=== PATIENT | female | born 1945 | race Caucasian/White ===

== ENCOUNTER 2016-11-26 09:38 | Day surgery (SDC) | payer MEDICARE, BC ==
[~2016-11-26 09:38] MED LIST: Lactated Ringers 1,000 ML IV SCH; Lidocaine 2% 5 ML SDV ONE; Midazolam 1 MG/ML 2 ML SDV ONE; Propofol 200 MG/20 ML SDV ONE; fentaNYL 100 MCG/2 ML SDV ONE
--- NOTE | 2016-11-26 10:40 | PCM.PREANE ---
Preanesthetic Assessment - Anesthesia/Transfusion/Family Hx Anesthesia History: Prior Anesthesia Without Reaction Family History of Anesthesia Reaction: No Transfusion History: No Prior Transfusion(s) Intubation History: Unknown - Review of Systems General: No Symptoms Pulmonary: No Symptoms Cardiovascular: No Symptoms Gastrointestinal: No Symptoms, Other (h/o colon polyps) Neurological: No Symptoms Other: Reports: None - Physical Assessment NPO Status Date: 11/25/16 O2 Sat by Pulse Oximetry: 95 Respiratory Rate: 16 Vital Signs: Last Vital Signs Temp 36.3 C 11/26/16 09:45 Pulse 58 L 11/26/16 09:45 Resp 16 11/26/16 09:45 BP 183/76 H 11/26/16 09:45 Pulse Ox 95 11/26/16 09:45 Height: 1.63 m Weight: 88.904 kg ASA Class: 3 Mental Status: Alert & Oriented x3 Airway Class: Mallampati = 2 Dentition: Reports: Normal Dentition Thyro-Mental Finger Breadths: 2 Mouth Opening Finger Breadths: 3 ROM/Head Extension: Limited/Partial Lungs: Clear to Auscultation, Normal Respiratory Effort Cardiovascular: Regular Rate, Regular Rhythm - Allergies Allergies/Adverse Reactions: Allergies Allergy/AdvReac Type Severity Reaction Status Date / Time No Known Allergies Allergy Verified 09/05/15 22:57 - Blood Blood Available: No - Anesthesia Plan Pre-Op Medication Ordered: None - Acknowledgements Anesthesia Type Planned: MAC Pt an Appropriate Candidate for the Planned Anesthesia: Yes Alternatives and Risks of Anesthesia Discussed w Pt/Guardian: Yes Pt/Guardian Understands and Agrees with Anesthesia Plan: Yes PreAnesthesia Questionnaire HEENT History: Reports: None Cardiovascular History: Reports: High Cholesterol, Hypertension Respiratory History: Reports: None Gastrointestinal History: Reports: Colon Polyp Genitourinary History: Reports: None [employer] MANAGER History: Reports: Musculoskeletal History: Reports: Arthritis Neurological History: Reports: None Psychiatric History: Reports: None Endocrine/Metabolic History: Reports: Diabetes, Type II, Hypothyroidism, Obesity /BMI 30+ Hematologic History: Reports: None Immunologic History: Reports: None Oncologic (Cancer) History: Reports: None Dermatologic History: Reports: Cellulitis Other Dermatologic History: cellulitis to face - Infectious Disease History Infectious Disease History: Reports: None - Past Surgical History Head Surgeries/Procedures: Reports: None HEENT Surgical History: Reports: None GI Surgical History: Reports: Colonoscopy (x3) Female Surgical History: Reports: D&C, Other (See Below) (colposcopy) Other Female Surgeries/Procedures: hysterosccopy with polyp removal - SUBSTANCE USE Smoking Status *Q: Never Smoker Tobacco Use Within Last Twelve Months: No Recreational Drug Use History: No - HOME MEDS Home Medications: Home Meds Hydrochlorothiazide 1 tab PO BEDTIME 09/05/15 [History] Levothyroxine [Synthroid] 1 tab PO DAILY 09/05/15 [History] Lisinopril 1 tab PO BEDTIME 09/05/15 [History] Metoprolol Succinate [Toprol XL 100mg] 1 tab PO BEDTIME 09/05/15 [History] Simvastatin [Zocor] 1 tab PO BEDTIME 09/05/15 [History] metFORMIN [Glucophage XR] 1,000 tab PO ACDINNER 09/05/15 [History] Aspirin [[place] Aspirin] 81 mg PO DAILY 11/23/16 [History] Magnesium Oxide [Magnesium] 1 tab PO ASDIRECTED 11/23/16 [History] - CURRENT (IN HOUSE) MEDS Current Meds: Current Medications Lactated Ringer's (Ringers, Lactated) 1,000 mls @ 125 mls/hr IV ASDIRECTED TAD Last Admin: 11/26/16 10:00 Dose: 125 mls/hr Discontinued Medications Fentanyl (Sublimaze) Confirm Administered Dose 100 mcg .ROUTE .STK-MED ONE Stop: 11/26/16 09:05 Lidocaine (Xylocaine-Mpf 2%) Confirm Administered Dose 5 ml .ROUTE .STK-MED ONE Stop: 11/26/16 09:05 Midazolam HCl (Versed 1 Mg/Ml) Confirm Administered Dose 2 mg .ROUTE .STK-MED ONE Stop: 11/26/16 09:05 Propofol (Diprivan 20 Ml) Confirm Administered Dose 400 mg .ROUTE .STK-MED ONE Stop: 11/26/16 09:05
--- NOTE | 2016-11-26 11:39 | PCM.OPNOTE ---
- General Post-Op/Procedure Note Date of Surgery/Procedure: 11/26/16 Operative Procedure(s): Colonoscopy with cold sigmoid colon polypectomy Pre Op Diagnosis: Personal history of colon polyps. Family history of colon cancer. Post-Op Diagnosis: Sigmoid colon polyp. Sigmoid diverticulosis. Anesthesia Technique: MAC (ASA III) Primary Surgeon: Alan Puckett Masonry Contractor: Nicole Roper Condition: Good Free Text/Narrative:: Dictation [id number] CPT CODE [id number]
[2016-11-26] MEDS ORDERED: Lactated Ringers 1,000 ML IV SCH (11:45)
[2016-11-26 12:10] VITALS: BP 146/60
--- NOTE | 2016-11-26 19:00 | OR ---
SURGEON: Alan Puckett M.D. DATE OF PROCEDURE: 11/26/2016 OPERATION PERFORMED: Colonoscopy with cold distal sigmoid polypectomy. ANESTHESIA: MAC. ASA CLASSIFICATION: III. PREOPERATIVE DIAGNOSES: 1. Personal history of colon polyps. 2. Family history of colon cancer. POSTOPERATIVE DIAGNOSES: 1. Sigmoid polyp. 2. Sigmoid diverticulosis. DESCRIPTION OF PROCEDURE: The patient was taken to the endoscopy room, positioned on the endoscopy table in the left lateral decubitus position. Time-out was called for appropriate identification of the patient and procedure. Monitored anesthesia care was provided. The colonoscope was inserted into the rectum and advanced with minimal difficulty to the cecum, where the colonoscope was retroflexed to visualize the ascending colon from below. The colonoscope was then straightened and slowly withdrawn. Cecum, ascending colon, hepatic flexure, transverse colon, splenic flexure, and descending colon showed no tumors, polyps, diverticula, or angiodysplastic changes. Moderate diverticular changes were noted in the sigmoid colon. One polyp was encountered in the distal sigmoid colon and removed with the cold biopsy forceps. The colonoscope was then withdrawn to the rectum. Despite multiple attempts, I was not able to retroflex the colonoscope in the rectum. The colonoscope was then straightened, the rectum aspirated, and the colonoscope removed. The patient tolerated the procedure well and was taken to recovery room in stable condition. MICHAEL HU /[id number]
== END 2016-11-26 12:20 | disposition home or self-care (01) ==
LOC: MW.SDS 09:38
PROVIDERS: ATTEND Surgery
DX: Z12.11 Encounter for screening for malignant neoplasm of colon (principal); D12.5 Benign neoplasm of sigmoid colon; K57.30 Diverticulosis of large intestine without perforation or abscess without bleeding; Z86.010 Personal history of colon polyps; Z80.0 Family history of malignant neoplasm of digestive organs; Z79.82 Long term (current) use of aspirin; Z79.84 Long term (current) use of oral hypoglycemic drugs; Z79.899 Other long term (current) drug therapy; Z98.890 Other specified postprocedural states
CPT/HCPCS: 45380; J2250; J3010; J7120; 00810; 88305; J2704

== ENCOUNTER 2017-10-10 07:54 | Day surgery (SDC) | payer MEDICARE, BC ==
[~2017-10-10 07:54] MED LIST changes: +Bupivacaine 0.25% 10 ML SDV ONE; -Lidocaine 2% 5 ML SDV ONE; +Methylene Blue 50 MG/10 ML Ampule ONE; -Midazolam 1 MG/ML 2 ML SDV ONE; +Octyl 2-Cyanoacrylate 1 Tube ONE; -Propofol 200 MG/20 ML SDV ONE; +Sodium Chloride 0.9% 10 ML Syringe FLUSH PRN; +Sodium Chloride 0.9% 2.5 ML Syringe FLUSH PRN; -fentaNYL 100 MCG/2 ML SDV ONE
[2017-10-10] MEDS ORDERED: ceFAZolin 2 GM in Premix Bag 1 BAG IV ONE (08:00)
--- NOTE | 2017-10-10 08:06 | PCM.PREANE ---
Preanesthetic Assessment - Procedure Proposed Procedure: [facility] - Anesthesia/Transfusion/Family Hx Anesthesia History: Prior Anesthesia Without Reaction Family History of Anesthesia Reaction: No Transfusion History: No Prior Transfusion(s) Intubation History: Unknown - Review of Systems General: No Symptoms Pulmonary: No Symptoms Cardiovascular: No Symptoms Gastrointestinal: No Symptoms Neurological: No Symptoms Other: Reports: None - Physical Assessment NPO Status Date: 10/10/17 NPO Status Time: 00:00 (to levothyroxin with sip H2O this AM) Height: 5 ft 4 in Weight: 173 lb ASA Class: 3 Mental Status: Alert & Oriented x3 Airway Class: Mallampati = 2 Dentition: Reports: Normal Dentition Thyro-Mental Finger Breadths: 3 Mouth Opening Finger Breadths: 3 ROM/Head Extension: Full Lungs: Clear to Auscultation, Normal Respiratory Effort Cardiovascular: Regular Rate, Regular Rhythm - Allergies Allergies/Adverse Reactions: Allergies Allergy/AdvReac Type Severity Reaction Status Date / Time No Known Allergies Allergy Verified 10/05/17 10:20 - Blood Blood Available: No Product(s) Available: None - Anesthesia Plan Free Text/Narrative:: Plan for GETA. Pt has a hx of Afib discovered in the last couple of weeks. Pt states she did not have any symptoms associated with it and that they did not have to do anything differently to "convert" her out of it. She states that she was already on medications for high BP and that her doctor stated that would serve to help this problem as well. This morning she is regular is rate and rhythm. Pre-Op Medication Ordered: None - Acknowledgements Anesthesia Type Planned: General Anesthesia Pt an Appropriate Candidate for the Planned Anesthesia: Yes Alternatives and Risks of Anesthesia Discussed w Pt/Guardian: Yes Pt/Guardian Understands and Agrees with Anesthesia Plan: Yes PreAnesthesia Questionnaire HEENT History: Reports: Other (See Below) Other HEENT History: wears glasses Cardiovascular History: Reports: Afib (hx of new onset a few weeks prior - currently by exam appears to be RRR), High Cholesterol, Hypertension Other Cardiovascular History: irregular HR Respiratory History: Reports: None Gastrointestinal History: Reports: Colon Polyp Genitourinary History: Reports: None EMS COORDINATOR History: Reports: Other OB/BYN History: ureterine polyps Musculoskeletal History: Reports: Arthritis Neurological History: Reports: None Psychiatric History: Reports: None Endocrine/Metabolic History: Reports: Diabetes, Type II, Hypothyroidism, Obesity /BMI 30+ Hematologic History: Reports: None Immunologic History: Reports: None Oncologic (Cancer) History: Reports: None Dermatologic History: Reports: Cellulitis Other Dermatologic History: hx cellulitis to face - Infectious Disease History Infectious Disease History: Reports: None - Past Surgical History Head Surgeries/Procedures: Reports: None HEENT Surgical History: Reports: None GI Surgical History: Reports: Colonoscopy Female Surgical History: Reports: D&C, Other (See Below) Other Female Surgeries/Procedures: hysterosccopy with polyp removal, hysteroscopy with D&C - SUBSTANCE USE Smoking Status *Q: Never Smoker Recreational Drug Use History: No - HOME MEDS Home Medications: Home Meds Hydrochlorothiazide 25 mg PO BEDTIME 09/05/15 [History] Levothyroxine [Synthroid] 1 tab PO DAILY 09/05/15 [History] Lisinopril 1 tab PO BEDTIME 09/05/15 [History] Metoprolol Succinate [Toprol XL 100mg] 50 mg PO BEDTIME 09/05/15 [History] Simvastatin [Zocor] 40 mg PO BEDTIME 09/05/15 [History] metFORMIN [Glucophage XR] 1,000 tab PO ACDINNER 09/05/15 [History] Aspirin [[place] Aspirin] 81 mg PO DAILY 11/23/16 [History] Magnesium Oxide [Magnesium] 1 tab PO ASDIRECTED 11/23/16 [History] - CURRENT (IN HOUSE) MEDS Current Meds: Current Medications Cefazolin Sodium/Dextrose 2 gm (/ Premix) 50 mls @ 100 mls/hr IV ONETIME ONE Stop: 10/10/17 08:29 Lactated Ringer's (Ringers, Lactated) 1,000 mls @ 125 mls/hr IV ASDIRECTED TAD Sodium Chloride (Saline Flush) 10 ml FLUSH ASDIRECTED PRN PRN Reason: Keep Vein Open Sodium Chloride (Saline Flush) 2.5 ml FLUSH ASDIRECTED PRN PRN Reason: Keep Vein Open Discontinued Medications Bupivacaine HCl (Sensorcaine-Mpf 0.25%) Confirm Administered Dose 20 ml .ROUTE .STK-MED ONE Stop: 10/10/17 07:31 Methylene Blue (Provayblue) Confirm Administered Dose 50 mg .ROUTE .STK-MED ONE Stop: 10/10/17 07:31 Octyl Cyanoacrylate (Dermabond Advance) Confirm Administered Dose 1 applic .ROUTE .[facility] Stop: 10/10/17 07:31
[2017-10-10] MEDS ORDERED: Lidocaine 2% 5 ML SDV ONE (08:07)
[2017-10-10] MEDS ORDERED: Ondansetron 4 MG/2 ML SDV ONE (08:07)
[2017-10-10] MEDS ORDERED: Rocuronium 10 MG/ML 10 ML Syringe ONE (08:07)
[2017-10-10] MEDS ORDERED: Propofol 200 MG/20 ML SDV ONE (08:08)
[2017-10-10] MEDS ORDERED: Midazolam 1 MG/ML 2 ML SDV ONE (08:08)
[2017-10-10] MEDS ORDERED: fentaNYL 250 MCG/5 ML SDV ONE (08:08)
[2017-10-10] MEDS ORDERED: ceFAZolin 1 GM Vial ONE (08:09)
[2017-10-10] MEDS ORDERED: Fluorescein 5 ML Vial ONE (08:10)
[2017-10-10 08:45] LABS: CHLORIDE,CL 100 mmol/L (98-107); SODIUM,NA 140 mmol/L (136-145)
[2017-10-10] MEDS ORDERED: Furosemide 40 MG/4 ML VIAL ONE (10:19)
[2017-10-10] MEDS ORDERED: Glycopyrrolate 0.2 MG/ML SDV ONE ×2 (10:30→12:16)
[2017-10-10] MEDS ORDERED: fentaNYL 100 MCG/2 ML SDV IVPUSH PRN (11:14)
[2017-10-10] MEDS ORDERED: Neostigmine Methylsulfate 1 MG/ML 5 ML Syringe ONE (12:16)
[2017-10-10] MEDS ORDERED: Morphine 4 MG/ML Syringe IVPUSH PRN (12:36)
[2017-10-10] MEDS ORDERED: Ondansetron 4 MG/2 ML SDV IVPUSH PRN (12:36)
[2017-10-10] MEDS ORDERED: Promethazine 25 MG/ML SDV IM PRN (12:36)
[2017-10-10] MEDS ORDERED: Acetaminophen/oxyCODONE 325-5 MG Tab PO PRN ×2 (12:36)
[2017-10-10] MEDS ORDERED: HYDROmorphone 2 MG/ML SDV IVPUSH ONE (12:44)
--- NOTE | 2017-10-10 12:51 | PCM.OPNOTE ---
- General Post-Op/Procedure Note Date of Surgery/Procedure: 10/10/17 Operative Procedure(s): Laparoscopic assisted vaginal hysterectomy, bilateral salpingoophrectomy with cystoscopy Findings: Normal appearing uterus tubes and ovaries bilaterally. Left ovary was adherent to the left pelvic side wall. Pre Op Diagnosis: Postmenopausal bleeding,. Complex endometrial hyperplasia with atypia. Endometrial polyps Post-Op Diagnosis: Same Anesthesia Technique: General ET Tube Primary Surgeon: Sangeeta Kohler Gas Engine Operator Compressors: Kia Hendrickson Gas Engine Operator Compressors: Anna Guzman Pathology: Uterus, tubes and ovaries Fluid Replacement, Intraop: 2,500 Output, Urine Amount: 430 EBL in mLs: 150 Complications: None Known Condition: Good
--- NOTE | 2017-10-10 13:26 | PCM.POSTAN ---
POST ANESTHESIA ASSESSMENT - MENTAL STATUS Mental Status: Alert, Oriented - VITAL SIGNS SaO2: 94 (w/o O2 - <90%) - RESPIRATORY Respiratory Status: Respiratory Rate WNL, Airway Patent, O2 Saturation Stable - CARDIOVASCULAR CV Status: Pulse Rate WNL, Blood Pressure Stable - GASTROINTESTINAL GI Status: No Symptoms - POST OP HYDRATION Hydration Status: Adequate & Stable - OBSERVATIONS Free Text/Narrative:: To go to floor with O2 as ordered by her surgeon. comfortable with narcotic treatment over last hour.
[2017-10-10] MEDS: Lactated Ringers 1,000 ML IV SCH ×2 (14:14→21:47)
[2017-10-10] MEDS: Ketorolac 15 MG/ML SDV IVPUSH SCH ×2 (14:38→17:52)
--- NOTE | 2017-10-10 18:43 | PCM.SURGPN ---
- General Info Date of Service: 10/10/17 POD#: 0 Functional Status: Reports: Pain Controlled, Tolerating Diet (Clears), Incentive Spirometry - Review of Systems General: Reports: Other (Sleepy). Denies: Fever, Fatigue Pulmonary: Denies: Shortness of Breath, Pleuritic Chest Pain Cardiovascular: Denies: Chest Pain, Palpitations Gastrointestinal: Denies: Abdominal Pain - Patient Data Vitals - Most Recent: Last Vital Signs Temp 36.1 C 10/10/17 15:15 Pulse 52 L 10/10/17 15:15 Resp 17 10/10/17 15:15 BP 132/59 L 10/10/17 15:15 Pulse Ox 95 10/10/17 15:15 Weight - Most Recent: 173 lb I&O - Last 24 Hours: Intake & Output 10/10/17 10/10/17 10/10/17 06:59 14:59 22:59 Intake Total 5400 245 Output Total 890 210 Balance 4510 35 Lab Results Last 24 Hrs: Laboratory Results - last 24 hr 10/10/17 10/10/17 10/10/17 Range/Units 08:12 08:12 08:12 WBC 10.40 (4.0-11.0) K/uL RBC 5.32 (4.30-5.90) M/uL Hgb 15.4 (12.0-16.0) g/dL Hct 44.7 (36.0-46.0) % MCV 84.0 (80.0-98.0) fL MCH 28.9 (27.0-32.0) pg MCHC 34.5 (31.0-37.0) g/dL RDW Std Deviation 40.3 (28.0-62.0) fl RDW Coeff of Lion 13 (11.0-15.0) % Plt Count 291 (150-400) K/uL MPV 10.10 (7.40-12.00) fL Nucleated RBC % 0.0 /100WBC Nucleated RBCs # 0 K/uL INR Sodium 140 (136-145) mmol/L Potassium 3.9 (3.5-5.1) mmol/L Chloride 100 (98-107) mmol/L Carbon Dioxide 28.9 (21.0-32.0) mmol/L BUN 20 H (7.0-18.0) mg/dL Creatinine 0.6 (0.6-1.0) mg/dL Est Cr Clr Drug Dosing 72.11 mL/min Estimated GFR (MDRD) > 60.0 ml/min Glucose 119 H (74-106) mg/dL POC Glucose (60-110) mg/dL Calcium 10.0 (8.5-10.1) mg/dL Blood Type O POSITIVE Antibody Screen NEGATIVE 10/10/17 10/10/17 Range/Units 08:12 15:59 WBC (4.0-11.0) K/uL RBC (4.30-5.90) M/uL Hgb (12.0-16.0) g/dL Hct (36.0-46.0) % MCV (80.0-98.0) fL MCH (27.0-32.0) pg MCHC (31.0-37.0) g/dL RDW Std Deviation (28.0-62.0) fl RDW Coeff of Lion (11.0-15.0) % Plt Count (150-400) K/uL MPV (7.40-12.00) fL Nucleated RBC % /100WBC Nucleated RBCs # K/uL INR 1.04 Sodium (136-145) mmol/L Potassium (3.5-5.1) mmol/L Chloride (98-107) mmol/L Carbon Dioxide (21.0-32.0) mmol/L BUN (7.0-18.0) mg/dL Creatinine (0.6-1.0) mg/dL Est Cr Clr Drug Dosing mL/min Estimated GFR (MDRD) ml/min Glucose (74-106) mg/dL POC Glucose 143 H (60-110) mg/dL Calcium (8.5-10.1) mg/dL Blood Type Antibody Screen Med Orders - Current: Current Medications Fentanyl (Sublimaze) 50 mcg IVPUSH .Q5MIN PRN PRN Reason: Pain Last Admin: 10/10/17 12:41 Dose: 50 mcg Lactated Ringer's (Ringers, Lactated) 1,000 mls @ 125 mls/hr IV ASDIRECTED TAD Last Admin: 10/10/17 14:14 Dose: 125 mls/hr Ketorolac Tromethamine (Toradol) 15 mg IVPUSH Q6H TAD Last Admin: 10/10/17 17:52 Dose: Not Given Morphine Sulfate (Morphine) 4 mg IVPUSH Q2H PRN PRN Reason: Pain (severe 7-10) Ondansetron HCl (Zofran) 4 mg IVPUSH Q6H PRN PRN Reason: Nausea/Vomiting Oxycodone/Acetaminophen (Percocet 325-5 Mg) 1 tab PO Q4H PRN PRN Reason: Pain (moderate 4-6) Oxycodone/Acetaminophen (Percocet 325-5 Mg) 2 tab PO Q4H PRN PRN Reason: Pain (moderate 4-6) Promethazine HCl (Phenergan) 25 mg IM Q6H PRN PRN Reason: Nausea/Vomiting Discontinued Medications Bupivacaine HCl (Sensorcaine-Mpf 0.25%) Confirm Administered Dose 20 ml .ROUTE .STK-MED ONE Stop: 10/10/17 07:31 Cefazolin Sodium (Ancef) Confirm Administered Dose 1 gm .ROUTE .STK-MED ONE Stop: 10/10/17 08:10 Fentanyl (Sublimaze) Confirm Administered Dose 250 mcg .ROUTE .STK-MED ONE Stop: 10/10/17 08:09 Fluorescein Sodium ([place]-Fluor) Confirm Administered Dose 5 ml .ROUTE .STK-MED ONE Stop: 10/10/17 08:11 Furosemide (Lasix) Confirm Administered Dose 40 mg .ROUTE .STK-MED ONE Stop: 10/10/17 10:20 Glycopyrrolate (Robinul) Confirm Administered Dose 0.2 mg .ROUTE .STK-MED ONE Stop: 10/10/17 10:31 Glycopyrrolate (Robinul) Confirm Administered Dose 0.2 mg .ROUTE .STK-MED ONE Stop: 10/10/17 12:17 Hydromorphone HCl (Dilaudid) 1 mg IVPUSH ONETIME ONE Stop: 10/10/17 12:45 Last Admin: 10/10/17 12:55 Dose: 1 mg Cefazolin Sodium/Dextrose 2 gm (/ Premix) 50 mls @ 100 mls/hr IV ONETIME ONE Stop: 10/10/17 08:29 Last Admin: 10/10/17 14:40 Dose: Not Given Lactated Ringer's (Ringers, Lactated) 1,000 mls @ 125 mls/hr IV ASDIRECTED [facility] Last Admin: 10/10/17 08:38 Dose: 125 mls/hr Cefazolin Sodium/Dextrose (Ancef) Confirm Administered Dose 50 mls @ as directed .ROUTE .STK-MED ONE Stop: 10/10/17 08:10 Acetaminophen (Ofirmev) Confirm Administered Dose 100 mls @ as directed IV .STK- MED ONE Stop: 10/10/17 08:11 Lidocaine (Xylocaine-Mpf 2%) Confirm Administered Dose 5 ml .ROUTE .STK-MED ONE Stop: 10/10/17 08:08 Methylene Blue (Provayblue) Confirm Administered Dose 50 mg .ROUTE .STK-MED ONE Stop: 10/10/17 07:31 Midazolam HCl (Versed 1 Mg/Ml) Confirm Administered Dose 2 mg .ROUTE .STK-MED ONE Stop: 10/10/17 08:09 Neostigmine Methylsulfate (Neostigmine) Confirm Administered Dose 5 mg .ROUTE .STK-MED ONE Stop: 10/10/17 12:17 Octyl Cyanoacrylate (Dermabond Advance) Confirm Administered Dose 1 applic .ROUTE .STK-MED ONE Stop: 10/10/17 07:31 Ondansetron HCl (Zofran) Confirm Administered Dose 4 mg .ROUTE .STK-MED ONE Stop: 10/10/17 08:08 Propofol (Diprivan 20 Ml) Confirm Administered Dose 200 mg .ROUTE .STK-MED ONE Stop: 10/10/17 08:09 Rocuronium Cobalt (Zemuron) Confirm Administered Dose 100 mg .ROUTE .ST-MED ONE Stop: 10/10/17 08:08 Sodium Chloride (Saline Flush) 10 ml FLUSH ASDIRECTED PRN PRN Reason: Keep Vein Open Sodium Chloride (Saline Flush) 2.5 ml FLUSH ASDIRECTED PRN PRN Reason: Keep Vein Open - Exam Wound/Incisions: Dressing Dry and Intact General: Alert, Oriented Lungs: Clear to Auscultation, Normal Respiratory Effort Cardiovascular: Regular Rate, Regular Rhythm GI/Abdominal Exam: Normal Bowel Sounds, Soft, Non-Tender, No Distention Extremities: Non-Tender, No Pedal Edema Psy/Mental Status: Alert, Normal Affect, Normal Mood - Problem List & Annotations (1) Postmenopausal bleeding SNOMED Code(s): 64391393 Code(s): N95.0 - POSTMENOPAUSAL BLEEDING Status: Acute Current Visit: No (2) Complex endometrial hyperplasia with atypia SNOMED Code(s): 235349295 Code(s): N85.02 - ENDOMETRIAL INTRAEPITHELIAL NEOPLASIA [EIN] Status: Acute Current Visit: Yes (3) S/P laparoscopic assisted vaginal hysterectomy (LAVH) SNOMED Code(s): 620903055, 22669346, 231789474 Code(s): Z90.710 - ACQUIRED ABSENCE OF BOTH CERVIX AND UTERUS Status: Acute Current Visit: Yes (4) Status post bilateral salpingo-oophorectomy SNOMED Code(s): 238561140, 764764271 Code(s): Z90.722 - ACQUIRED ABSENCE OF OVARIES, BILATERAL Status: Acute Current Visit: Yes - Problem List Review Problem List Initiated/Reviewed/Updated: Yes - My Orders Last 24 Hours: Active Orders 24 hr Category Date Time Status Patient Status [ADT] Routine ADT 10/10/17 12:36 Active Blood Glucose Check, Bedside [RC] ONETIME Care 10/10/17 07:00 Inactive Blood Glucose Check, Bedside [RC] TIDMEALS Care 10/10/17 12:36 Active Communication Order [RC] ASDIRECTED Care 10/10/17 12:45 Active Diabetes Education [RC] Click to Edit Care 10/10/17 12:45 Active May Shower [RC] ASDIRECTED Care 10/10/17 12:36 Active Notify Provider Intake and Out [RC] ASDIRECTED Care 10/10/17 12:36 Active Notify Provider Vital Signs [RC] ASDIRECTED Care 10/10/17 12:36 Active Notify Provider [RC] PRN Care 10/10/17 12:45 Active Oxygen Therapy [RC] ASDIRECTED Care 10/10/17 12:36 Active Procedure Prep Instructions [RC] PER UNIT ROUTINE Care 10/10/17 05:00 Inactive Procedure Site Prep Instruct [RC] PER UNIT ROUTINE Care 10/10/17 05:00 Inactive RT Incentive Spirometry [RC] Q2HWA Care 10/10/17 12:36 Active Up With Assistance [RC] PER UNIT ROUTINE Care 10/10/17 12:36 Active Up ad Laure [RC] PER UNIT ROUTINE Care 10/10/17 12:36 Active Urinary Catheter Removal [RC] Per Unit Routine Care 10/10/17 12:36 Active Verify Patient Consent Obtain [RC] PER UNIT ROUTINE Care 10/10/17 05:00 Inactive Vital Signs [RC] PER UNIT ROUTINE Care 10/10/17 05:00 Inactive Vital Signs [RC] PER UNIT ROUTINE Care 10/10/17 12:36 Active Regular Diet [DIET] Diet 10/10/17 Dinner Active BASIC METABOLIC PANEL,BMP [CHEM] AM Lab 10/11/17 05:11 Ordered CBC WITH AUTO DIFF [HEME] AM Lab 10/11/17 05:11 Ordered Acetaminophen/oxyCODONE [Percocet 325-5 MG] Med 10/10/17 12:36 Active 1 tab PO Q4H PRN Acetaminophen/oxyCODONE [Percocet 325-5 MG] Med 10/10/17 12:36 Active 2 tab PO Q4H PRN Ketorolac [Toradol] Med 10/10/17 12:45 Active 15 mg IVPUSH Q6H Lactated Ringers [Ringers, Lactated] 1,000 ml Med 10/10/17 13:00 Active IV ASDIRECTED Morphine Med 10/10/17 12:36 Active 4 mg IVPUSH Q2H PRN Ondansetron [Zofran] Med 10/10/17 12:36 Active 4 mg IVPUSH Q6H PRN Promethazine [Phenergan] Med 10/10/17 12:36 Active 25 mg IM Q6H PRN fentaNYL [Sublimaze] Med 10/10/17 11:14 Active 50 mcg IVPUSH .Q5MIN PRN Glucose Management IV Reflex [OM.PC] Routine Oth 10/10/17 12:44 Ordered Peripheral IV Discontinue [OM.PC] Routine Oth 10/10/17 12:36 Ordered Sequential Compression Device [OM.PC] Per Unit Routine Oth 10/10/17 12:36 Ordered Resuscitation Status Routine Resus Stat 10/10/17 12:36 Ordered Medication Orders Fentanyl (Sublimaze) 50 mcg IVPUSH .Q5MIN PRN PRN Reason: Pain Last Admin: 10/10/17 12:41 Dose: 50 mcg Lactated Ringer's (Ringers, Lactated) 1,000 mls @ 125 mls/hr IV ASDIRECTED TAD Last Admin: 10/10/17 14:14 Dose: 125 mls/hr Ketorolac Tromethamine (Toradol) 15 mg IVPUSH Q6H TAD Last Admin: 10/10/17 17:52 Dose: Not Given Admin: 10/10/17 14:38 Dose: Morphine Sulfate (Morphine) 4 mg IVPUSH Q2H PRN PRN Reason: Pain (severe 7-10) Ondansetron HCl (Zofran) 4 mg IVPUSH Q6H PRN PRN Reason: Nausea/Vomiting Oxycodone/Acetaminophen (Percocet 325-5 Mg) 1 tab PO Q4H PRN PRN Reason: Pain (moderate 4-6) Oxycodone/Acetaminophen (Percocet 325-5 Mg) 2 tab PO Q4H PRN PRN Reason: Pain (moderate 4-6) Promethazine HCl (Phenergan) 25 mg IM Q6H PRN PRN Reason: Nausea/Vomiting - Assessment Assessment (Free Text/Narrative):: POD#0 s/p LAVH + BSO, Sleepy but doing well for immediate postop period. HR is regular in the 50's Adequate urine output - Plan Plan (Free Text/Narrative):: Continue current care. May give her antihypertensive (Lisinopril and HCTZ) but hold her beta rachna tonight due low HR of 40-50's Needs assistance out of bed, Santiago out in the am
--- NOTE | 2017-10-10 19:36 | PCM48HPAN ---
Post Anesthesia Note - EVALUATION WITHIN 48HRS OF ANESTHETIC Vital Signs in Normal Range: Yes Patient Participated in Evaluation: Yes Respiratory Function Stable: Yes Airway Patent: Yes Cardiovascular Function Stable: Yes Hydration Status Stable: Yes Pain Control Satisfactory: Yes Nausea and Vomiting Control Satisfactory: Yes Mental Status Recovered: Yes Resp Rate: 17
[2017-10-11] MEDS: Ketorolac 15 MG/ML SDV IVPUSH SCH ×2 (00:17→06:25)
--- NOTE | 2017-10-11 00:44 | OR ---
SURGEON: Sangeeta Kohler MD DATE OF PROCEDURE: WOOD STAINER: 1. Kia Hendrickson M.D. 2. Anna Guzman, Medical Student. POSTOPERATIVE DIAGNOSES: 1. Postmenopausal bleeding. 2. Complex endometrial hyperplasia with atypia. 3. Endometrial polyps. POSTOPERATIVE DIAGNOSES: 1. Postmenopausal bleeding. 2. Complex endometrial hyperplasia with atypia. 3. Endometrial polyps. PROCEDURE: Laparoscopic assisted vaginal hysterectomy with bilateral salpingo oophorectomy and cystoscopy. ANESTHESIA: General endotracheal. FLUIDS: 2500 mL crystalloid. ESTIMATED BLOOD LOSS: 150 mL. FINDINGS: Normal-appearing uterus, tubes, and ovaries. Left ovary adherent to left pelvic side wall. Bilaterally ureters orifice showed copious flow of florescent yellow urine on cystoscopy with no evidence of trauma to the bladder mucosa. COMPLICATIONS: None known. DISPOSITION: Stable to the recovery room. BRIEF HISTORY: The patient is a 72-year-old postmenopausal lady, who was evaluated for postmenopausal bleeding. She had a saline-enhanced sonohysterogram which showed multiple endometrial polyps and office Pipelle biopsy revealed complex endometrial hyperplasia with atypia. Treatment options were discussed and she was offered a hysteroscopy with directed biopsies due to possibility of co- existing endometrial cancer, referral to [facility] or a hysterectomy with removal of her tubes and ovaries. The patient declined the Ist two and rather opted to proceed with hysterectomy with bilateral salpingo-oophorectomy here in [place], as she did not want to try travel for surgery, understanding that she might need for surgery or treatment if endometrial cancer is reported on the final pathology. The surgical risks were discussed including, but not limited to infection, injury to bowel, bladder, blood vessels, or other internal organs, and the risk of thromboembolic event. Understanding these risks, she desired to proceed and appropriate consent was obtained. She was medically cleared by her primary healthcare provider. DESCRIPTION OF PROCEDURE: The patient was taken to the operating room where induction of general anesthesia was performed. After adequate level of anesthesia, she was placed in dorsal lithotomy position. The abdomen was prepped with chlorhexidine and the perineum and the vagina was prepped with Betadine. She was draped in the usual sterile fashion for laparoscopic-assisted vaginal hysterectomy. A Santiago catheter had been placed and backfilled with 30mL of dilute methylene blue. SCDs were in place. She received 2 g of Ancef and an appropriate time- out was held. Examination under anesthesia revealed a normal-sized uterus with no palpable adnexal masses. A bivalve speculum was placed into the vagina and the Zumi was then placed into the uterine cavity. The speculum was removed. The boring machine set up operator jig's gloves were changed. Attention was then turned to the abdomen where 0.25% of Marcaine was injected inferior to the umbilicus fold and a 5 mm incision was made with a scalpel. The anterior abdominal wall was then elevated and a Veress needle was introduced. The opening pressure was 5 mmHg. CO2 insufflation was performed and an adequate pneumoperitoneum of 15 mmHg was obtained. The Veress needle was then removed. A 5 mm port and trocar was introduced and a 5 mm laparoscope was placed into the abdominal cavity and there was no evidence of trauma from the port site placement. The uterus was then elevated out of the pelvis and the patient was placed in steep Trendelenburg. The left ovary was found to be adherent to the left pelvic wall. No other pelvic pathology was noted. Two additional ports were then placed under direct visualization in the right and the left lower quadrant after the areas had been infiltrated with 0.25% Marcaine. Each port was 5 mm and these were placed without difficulty. The uterus was further elevated out of the pelvis and the ureters were noted to be deep within the pelvis away from the operative field. Using a 5 mm ligature device, the adherent left ovary was then released from the pelvic side wall. The area was hemostatic. Attention was then turned to the left infundibulopelvic ligament, which cauterized and cut using the ligature device and then proceeding along to the round ligament and the broad ligament. The anterior leaf of the broad ligament was then opened to develop an adequate bladder flap over the lower uterine segment. This was carried onto the right side and the bladder flap was created without difficulty. The uterine artery on the left side was skeletonized, double cauterized, and cut. Similar steps were then performed on the patient's right side. Both sites were found to be hemostatic and the instruments were then removed from the abdomen and it was desufflated. Attention was then turned to the patient's vagina. The clamped catheter was released. A weighted speculum was then placed posteriorly with right angle retractors placed into the vagina, retracting the vaginal wall anteriorly and laterally. The cervix was grasped with Kathleen tenaculum and circumscribed using electrocautery. The vaginal mucosa was then pushed up the vagina posteriorly and anteriorly and the posterior cul-de-sac was entered sharply and a Ede- Auvard speculum was then placed into the posterior cul-de-sac. The anterior cul - de-sac was then entered sharply as a finger was used to palpate the area that had been developed laparoscopically and then right-angle was placed into the anterior cul-de-sac, lifting the bladder cephalad.. The right and the left uterosacral ligaments were then cross clamped using Marshal clamp, cut, and suture ligated using a Marshal ligature of 2-0 Vicryl on either sides. These stitches were retained. Once these pedicles were taken, the uterus was free, was delivered vaginally and passed on to the mix technician off the operating field. The pedicles were then examined. There was a small area bleeding on the left side. This was cross clamped with a tonsil clamp and was suture ligated with 2-0 Vicryl. The pedicles were then re-examined and found to be hemostatic. The retained uterosacral ligaments were then transfixed to the vagina apices ipsilaterally. All the pedicles were re-examined and found to be completely hemostatic. The cuff was then closed with a running locked suture of 0 Polysorb. The catheter was removed from the bladder. Cystoscopy was then performed after intravenous fluorescein with Lasix had been given. There was copious flow of fluorescent yellow urine bilaterally from the ureter orifices. The catheter was replaced. The vagina was again examined for complete hemostasis and this was found to be adequate. Therefore, the boring machine set up operator jig's gloves were changed. Attention was then turned abdominally where the abdomen was reinsufflated. The pelvis was copiously irrigated and inspected. There was an area that was oozing along the bladder flap. This was gently cauterized using the ligature and was hemostatic. The abdomen was reinspected on the 5 mmHg and was found to be completely hemostatic. Therefore, the abdomen was desufflated. All the ports were removed. The skin was closed with subcuticular sutures of 4-0 Monocryl. Final sponge, needle, and instrument counts were reported as correct. There were no known complications and the patient was transferred to the recovery room in good condition. ZACHARY / FRITZ /[id number] MTDD
[2017-10-11 05:48] VITALS: BP 118/41
[2017-10-11 06:18] LABS: CHLORIDE,CL 100 mmol/L (98-107); SODIUM,NA 135 mmol/L (136-145)
[2017-10-11] MEDS: Lactated Ringers 1,000 ML IV SCH (06:26)
--- NOTE | 2017-10-11 07:07 | PCM.PN ---
<Anna Guzman - Last Filed: 10/11/17 07:04> - General Info Date of Service: 10/11/17 Functional Status: Reports: Pain Controlled, Tolerating Diet, Ambulating, Urinating - Review of Systems General: Denies: Fever, Chills HEENT: Denies: Headaches Pulmonary: Denies: Shortness of Breath, Pleuritic Chest Pain, Cough Cardiovascular: Denies: Chest Pain, Palpitations, Edema Gastrointestinal: Denies: Constipation, Diarrhea, Nausea, Vomiting Genitourinary: Denies: Dysuria, Frequency, Burning Musculoskeletal: Denies: Leg Pain Neurological: Denies: Dizziness, Headache - Patient Data Vitals - Most Recent: Last Vital Signs Temp 36.9 C 10/11/17 05:00 Pulse 53 L 10/11/17 05:00 Resp 16 10/11/17 05:00 BP 118/41 L 10/11/17 05:00 Pulse Ox 92 L 10/11/17 05:00 Weight - Most Recent: 173 lb I&O - Last 24 Hours: Intake & Output 10/10/17 10/11/17 10/11/17 22:59 06:59 14:59 Intake Total 245 1758 Output Total 210 451 Balance 35 1307 Lab Results Last 24 Hours: Laboratory Results - last 24 hr 10/10/17 10/10/17 10/10/17 Range/Units 08:12 08:12 08:12 WBC 10.40 (4.0-11.0) K/uL RBC 5.32 (4.30-5.90) M/uL Hgb 15.4 (12.0-16.0) g/dL Hct 44.7 (36.0-46.0) % MCV 84.0 (80.0-98.0) fL MCH 28.9 (27.0-32.0) pg MCHC 34.5 (31.0-37.0) g/dL RDW Std Deviation 40.3 (28.0-62.0) fl RDW Coeff of Lion 13 (11.0-15.0) % Plt Count 291 (150-400) K/uL MPV 10.10 (7.40-12.00) fL Neut % (Auto) (48.0-80.0) % Lymph % (Auto) (16.0-40.0) % [place] % (Auto) (0.0-15.0) % Eos % (Auto) (0.0-7.0) % Baso % (Auto) (0.0-1.5) % Neut # (Auto) (1.4-5.7) K/uL Lymph # (Auto) (0.6-2.4) K/uL [place] # (Auto) (0.0-0.8) K/uL Eos # (Auto) (0.0-0.7) K/uL Baso # (Auto) (0.0-0.1) K/uL Nucleated RBC % 0.0 /100WBC Nucleated RBCs # 0 K/uL INR Sodium 140 (136-145) mmol/L Potassium 3.9 (3.5-5.1) mmol/L Chloride 100 (98-107) mmol/L Carbon Dioxide 28.9 (21.0-32.0) mmol/L BUN 20 H (7.0-18.0) mg/dL Creatinine 0.6 (0.6-1.0) mg/dL Est Cr Clr Drug Dosing 72.11 mL/min Estimated GFR (MDRD) > 60.0 ml/min Glucose 119 H (74-106) mg/dL POC Glucose (60-110) mg/dL Calcium 10.0 (8.5-10.1) mg/dL Blood Type O POSITIVE Antibody Screen NEGATIVE 10/10/17 10/10/17 10/11/17 Range/Units 08:12 15:59 05:40 WBC 11.91 H (4.0-11.0) K/uL RBC 4.16 L (4.30-5.90) M/uL Hgb 11.6 L (12.0-16.0) g/dL Hct 34.7 L (36.0-46.0) % MCV 83.4 (80.0-98.0) fL MCH 27.9 (27.0-32.0) pg MCHC 33.4 (31.0-37.0) g/dL RDW Std Deviation 39.9 (28.0-62.0) fl RDW Coeff of Lion 13 (11.0-15.0) % Plt Count 231 (150-400) K/uL MPV 10.10 (7.40-12.00) fL Neut % (Auto) 78.4 (48.0-80.0) % Lymph % (Auto) 12.2 L (16.0-40.0) % [place] % (Auto) 8.9 (0.0-15.0) % Eos % (Auto) 0.4 (0.0-7.0) % Baso % (Auto) 0.1 (0.0-1.5) % Neut # (Auto) 9.3 H (1.4-5.7) K/uL Lymph # (Auto) 1.5 (0.6-2.4) K/uL [place] # (Auto) 1.1 H (0.0-0.8) K/uL Eos # (Auto) 0.1 (0.0-0.7) K/uL Baso # (Auto) 0.0 (0.0-0.1) K/uL Nucleated RBC % 0.0 /100WBC Nucleated RBCs # 0 K/uL INR 1.04 Sodium (136-145) mmol/L Potassium (3.5-5.1) mmol/L Chloride (98-107) mmol/L Carbon Dioxide (21.0-32.0) mmol/L BUN (7.0-18.0) mg/dL Creatinine (0.6-1.0) mg/dL Est Cr Clr Drug Dosing mL/min Estimated GFR (MDRD) ml/min Glucose (74-106) mg/dL POC Glucose 143 H (60-110) mg/dL Calcium (8.5-10.1) mg/dL Blood Type Antibody Screen 10/11/17 10/11/17 Range/Units 05:40 06:38 WBC (4.0-11.0) K/uL RBC (4.30-5.90) M/uL Hgb (12.0-16.0) g/dL Hct (36.0-46.0) % MCV (80.0-98.0) fL MCH (27.0-32.0) pg MCHC (31.0-37.0) g/dL RDW Std Deviation (28.0-62.0) fl RDW Coeff of Lion (11.0-15.0) % Plt Count (150-400) K/uL MPV (7.40-12.00) fL Neut % (Auto) (48.0-80.0) % Lymph % (Auto) (16.0-40.0) % [place] % (Auto) (0.0-15.0) % Eos % (Auto) (0.0-7.0) % Baso % (Auto) (0.0-1.5) % Neut # (Auto) (1.4-5.7) K/uL Lymph # (Auto) (0.6-2.4) K/uL [place] # (Auto) (0.0-0.8) K/uL Eos # (Auto) (0.0-0.7) K/uL Baso # (Auto) (0.0-0.1) K/uL Nucleated RBC % /100WBC Nucleated RBCs # K/uL INR Sodium 135 L (136-145) mmol/L Potassium 3.8 (3.5-5.1) mmol/L Chloride 100 (98-107) mmol/L Carbon Dioxide 31.4 (21.0-32.0) mmol/L BUN 13 (7.0-18.0) mg/dL Creatinine 0.6 (0.6-1.0) mg/dL Est Cr Clr Drug Dosing 72.11 mL/min Estimated GFR (MDRD) > 60.0 ml/min Glucose 122 H (74-106) mg/dL POC Glucose 92 (60-110) mg/dL Calcium 8.5 (8.5-10.1) mg/dL Blood Type Antibody Screen Med Orders - Current: Current Medications Fentanyl (Sublimaze) 50 mcg IVPUSH .Q5MIN PRN PRN Reason: Pain Last Admin: 10/10/17 12:41 Dose: 50 mcg Lactated Ringer's (Ringers, Lactated) 1,000 mls @ 125 mls/hr IV ASDIRECTED [facility] Last Admin: 10/11/17 06:26 Dose: 125 mls/hr Ketorolac Tromethamine (Toradol) 15 mg IVPUSH Q6H [facility] Last Admin: 10/11/17 06:25 Dose: 15 mg Morphine Sulfate (Morphine) 4 mg IVPUSH Q2H PRN PRN Reason: Pain (severe 7-10) Ondansetron HCl (Zofran) 4 mg IVPUSH Q6H PRN PRN Reason: Nausea/Vomiting Last Admin: 10/11/17 00:18 Dose: 4 mg Oxycodone/Acetaminophen (Percocet 325-5 Mg) 1 tab PO Q4H PRN PRN Reason: Pain (moderate 4-6) Last Admin: 10/10/17 21:43 Dose: 1 tab Oxycodone/Acetaminophen (Percocet 325-5 Mg) 2 tab PO Q4H PRN PRN Reason: Pain (moderate 4-6) Promethazine HCl (Phenergan) 25 mg IM Q6H PRN PRN Reason: Nausea/Vomiting Discontinued Medications Bupivacaine HCl (Sensorcaine-Mpf 0.25%) Confirm Administered Dose 20 ml .ROUTE .STK-MED ONE Stop: 10/10/17 07:31 Cefazolin Sodium (Ancef) Confirm Administered Dose 1 gm .ROUTE .STK-MED ONE Stop: 10/10/17 08:10 Fentanyl (Sublimaze) Confirm Administered Dose 250 mcg .ROUTE .STK-MED ONE Stop: 10/10/17 08:09 Fluorescein Sodium (Ak-Fluor) Confirm Administered Dose 5 ml .ROUTE .STK-MED ONE Stop: 10/10/17 08:11 Furosemide (Lasix) Confirm Administered Dose 40 mg .ROUTE .STK-MED ONE Stop: 10/10/17 10:20 Glycopyrrolate (Robinul) Confirm Administered Dose 0.2 mg .ROUTE .STK-MED ONE Stop: 10/10/17 10:31 Glycopyrrolate (Robinul) Confirm Administered Dose 0.2 mg .ROUTE .STK-MED ONE Stop: 10/10/17 12:17 Hydromorphone HCl (Dilaudid) 1 mg IVPUSH ONETIME ONE Stop: 10/10/17 12:45 Last Admin: 10/10/17 12:55 Dose: 1 mg Cefazolin Sodium/Dextrose 2 gm (/ Premix) 50 mls @ 100 mls/hr IV ONETIME ONE Stop: 10/10/17 08:29 Last Admin: 10/10/17 14:40 Dose: Not Given Lactated Ringer's (Ringers, Lactated) 1,000 mls @ 125 mls/hr IV ASDIRECTED [facility] Last Admin: 10/10/17 08:38 Dose: 125 mls/hr Cefazolin Sodium/Dextrose (Ancef) Confirm Administered Dose 50 mls @ as directed .ROUTE .STK-MED ONE Stop: 10/10/17 08:10 Acetaminophen (Ofirmev) Confirm Administered Dose 100 mls @ as directed IV .STK- MED ONE Stop: 10/10/17 08:11 Lidocaine (Xylocaine-Mpf 2%) Confirm Administered Dose 5 ml .ROUTE .STK-MED ONE Stop: 10/10/17 08:08 Methylene Blue (Provayblue) Confirm Administered Dose 50 mg .ROUTE .STK-MED ONE Stop: 10/10/17 07:31 Midazolam HCl (Versed 1 Mg/Ml) Confirm Administered Dose 2 mg .ROUTE .STK-MED ONE Stop: 10/10/17 08:09 Neostigmine Methylsulfate (Neostigmine) Confirm Administered Dose 5 mg .ROUTE .STK-MED ONE Stop: 10/10/17 12:17 Octyl Cyanoacrylate (Dermabond Advance) Confirm Administered Dose 1 applic .ROUTE .ST-MED ONE Stop: 10/10/17 07:31 Ondansetron HCl (Zofran) Confirm Administered Dose 4 mg .ROUTE .STK-MED ONE Stop: 10/10/17 08:08 Propofol (Diprivan 20 Ml) Confirm Administered Dose 200 mg .ROUTE .STK-MED ONE Stop: 10/10/17 08:09 Rocuronium [place] (Zemuron) Confirm Administered Dose 100 mg .ROUTE .STK-MED ONE Stop: 10/10/17 08:08 Sodium Chloride (Saline Flush) 10 ml FLUSH ASDIRECTED PRN PRN Reason: Keep Vein Open Sodium Chloride (Saline Flush) 2.5 ml FLUSH ASDIRECTED PRN PRN Reason: Keep Vein Open - Exam General: Alert, Oriented, No Acute Distress HEENT: Pupils Equal, Pupils Reactive Lungs: Clear to Auscultation, Normal Respiratory Effort Cardiovascular: Regular Rhythm, No Murmurs, Bradycardia GI/Abdominal Exam: Normal Bowel Sounds, Soft, No Distention. No: Guarding, Rigid, Rebound Extremities: Normal Inspection, Normal Range of Motion, Non-Tender, No Pedal Edema, Normal Capillary Refill Peripheral Pulses: 2+: Posterior Tibial (L), Posterior Tibial (R), Dorsalis Pedis (L), Dorsalis Pedis (R) Skin: Warm, Dry, Intact Wound/Incisions: Healing Well, Dressing Dry and Intact Neurological: No New Focal Deficit Psy/Mental Status: Alert, Normal Affect, Normal Mood - Problem List Review Problem List Initiated/Reviewed/Updated: Yes - Assessment Assessment:: 72 year old female POD1 from laparoscopic assisted vaginal hysterectomy for endometrial hyperplasia. Pain controlled. Recovering appropriately. - Plan Plan:: Discharge today. <Sangeeta Kohler - Last Filed: 10/11/17 08:48> - General Info Functional Status: Reports: Other (No vaginal bleeding). Denies: Urinating ( Santiago was taken out this am- patient is yet to void) - Patient Data Vitals - Most Recent: Last Vital Signs Temp 36.9 C 10/11/17 05:00 Pulse 53 L 10/11/17 05:00 Resp 16 10/11/17 05:00 BP 118/41 L 10/11/17 05:00 Pulse Ox 92 L 10/11/17 05:00 I&O - Last 24 Hours: Intake & Output 10/10/17 10/11/17 10/11/17 22:59 06:59 14:59 Intake Total 245 1758 Output Total 210 451 Balance 35 1307 Lab Results Last 24 Hours: Laboratory Results - last 24 hr 10/10/17 10/10/17 10/10/17 Range/Units 08:12 08:12 15:59 WBC (4.0-11.0) K/uL RBC (4.30-5.90) M/uL Hgb (12.0-16.0) g/dL Hct (36.0-46.0) % MCV (80.0-98.0) fL MCH (27.0-32.0) pg MCHC (31.0-37.0) g/dL RDW Std Deviation (28.0-62.0) fl RDW Coeff of Lion (11.0-15.0) % Plt Count (150-400) K/uL MPV (7.40-12.00) fL Neut % (Auto) (48.0-80.0) % Lymph % (Auto) (16.0-40.0) % [place] % (Auto) (0.0-15.0) % Eos % (Auto) (0.0-7.0) % Baso % (Auto) (0.0-1.5) % Neut # (Auto) (1.4-5.7) K/uL Lymph # (Auto) (0.6-2.4) K/uL [place] # (Auto) (0.0-0.8) K/uL Eos # (Auto) (0.0-0.7) K/uL Baso # (Auto) (0.0-0.1) K/uL Nucleated RBC % /100WBC Nucleated RBCs # K/uL Sodium 140 (136-145) mmol/L Potassium 3.9 (3.5-5.1) mmol/L Chloride 100 (98-107) mmol/L Carbon Dioxide 28.9 (21.0-32.0) mmol/L BUN 20 H (7.0-18.0) mg/dL Creatinine 0.6 (0.6-1.0) mg/dL Est Cr Clr Drug Dosing 72.11 mL/min Estimated GFR (MDRD) > 60.0 ml/min Glucose 119 H (74-106) mg/dL POC Glucose 143 H (60-110) mg/dL Calcium 10.0 (8.5-10.1) mg/dL Blood Type O POSITIVE Antibody Screen NEGATIVE 10/11/17 10/11/17 10/11/17 Range/Units 05:40 05:40 06:38 WBC 11.91 H (4.0-11.0) K/uL RBC 4.16 L (4.30-5.90) M/uL Hgb 11.6 L (12.0-16.0) g/dL Hct 34.7 L (36.0-46.0) % MCV 83.4 (80.0-98.0) fL MCH 27.9 (27.0-32.0) pg MCHC 33.4 (31.0-37.0) g/dL RDW Std Deviation 39.9 (28.0-62.0) fl RDW Coeff of Lion 13 (11.0-15.0) % Plt Count 231 (150-400) K/uL MPV 10.10 (7.40-12.00) fL Neut % (Auto) 78.4 (48.0-80.0) % Lymph % (Auto) 12.2 L (16.0-40.0) % [place] % (Auto) 8.9 (0.0-15.0) % Eos % (Auto) 0.4 (0.0-7.0) % Baso % (Auto) 0.1 (0.0-1.5) % Neut # (Auto) 9.3 H (1.4-5.7) K/uL Lymph # (Auto) 1.5 (0.6-2.4) K/uL [place] # (Auto) 1.1 H (0.0-0.8) K/uL Eos # (Auto) 0.1 (0.0-0.7) K/uL Baso # (Auto) 0.0 (0.0-0.1) K/uL Nucleated RBC % 0.0 /100WBC Nucleated RBCs # 0 K/uL Sodium 135 L (136-145) mmol/L Potassium 3.8 (3.5-5.1) mmol/L Chloride 100 (98-107) mmol/L Carbon Dioxide 31.4 (21.0-32.0) mmol/L BUN 13 (7.0-18.0) mg/dL Creatinine 0.6 (0.6-1.0) mg/dL Est Cr Clr Drug Dosing 72.11 mL/min Estimated GFR (MDRD) > 60.0 ml/min Glucose 122 H (74-106) mg/dL POC Glucose 92 (60-110) mg/dL Calcium 8.5 (8.5-10.1) mg/dL Blood Type Antibody Screen Med Orders - Current: Current Medications Fentanyl (Sublimaze) 50 mcg IVPUSH .Q5MIN PRN PRN Reason: Pain Last Admin: 10/10/17 12:41 Dose: 50 mcg Lactated Ringer's (Ringers, Lactated) 1,000 mls @ 125 mls/hr IV ASDIRECTED [facility] Last Admin: 10/11/17 06:26 Dose: 125 mls/hr Ketorolac Tromethamine (Toradol) 15 mg IVPUSH Q6H [facility] Last Admin: 10/11/17 06:25 Dose: 15 mg Morphine Sulfate (Morphine) 4 mg IVPUSH Q2H PRN PRN Reason: Pain (severe 7-10) Ondansetron HCl (Zofran) 4 mg IVPUSH Q6H PRN PRN Reason: Nausea/Vomiting Last Admin: 10/11/17 00:18 Dose: 4 mg Oxycodone/Acetaminophen (Percocet 325-5 Mg) 1 tab PO Q4H PRN PRN Reason: Pain (moderate 4-6) Last Admin: 10/10/17 21:43 Dose: 1 tab Oxycodone/Acetaminophen (Percocet 325-5 Mg) 2 tab PO Q4H PRN PRN Reason: Pain (moderate 4-6) Promethazine HCl (Phenergan) 25 mg IM Q6H PRN PRN Reason: Nausea/Vomiting Discontinued Medications Bupivacaine HCl (Sensorcaine-Mpf 0.25%) Confirm Administered Dose 20 ml .ROUTE .STK-MED ONE Stop: 10/10/17 07:31 Cefazolin Sodium (Ancef) Confirm Administered Dose 1 gm .ROUTE .STK-MED ONE Stop: 10/10/17 08:10 Fentanyl (Sublimaze) Confirm Administered Dose 250 mcg .ROUTE .STK-MED ONE Stop: 10/10/17 08:09 Fluorescein Sodium (Ak-Fluor) Confirm Administered Dose 5 ml .ROUTE .STK-MED ONE Stop: 10/10/17 08:11 Furosemide (Lasix) Confirm Administered Dose 40 mg .ROUTE .STK-MED ONE Stop: 10/10/17 10:20 Glycopyrrolate (Robinul) Confirm Administered Dose 0.2 mg .ROUTE .STK-MED ONE Stop: 10/10/17 10:31 Glycopyrrolate (Robinul) Confirm Administered Dose 0.2 mg .ROUTE .STK-MED ONE Stop: 10/10/17 12:17 Hydromorphone HCl (Dilaudid) 1 mg IVPUSH ONETIME ONE Stop: 10/10/17 12:45 Last Admin: 10/10/17 12:55 Dose: 1 mg Cefazolin Sodium/Dextrose 2 gm (/ Premix) 50 mls @ 100 mls/hr IV ONETIME ONE Stop: 10/10/17 08:29 Last Admin: 10/10/17 14:40 Dose: Not Given Lactated Ringer's (Ringers, Lactated) 1,000 mls @ 125 mls/hr IV ASDIRECTED [facility] Last Admin: 10/10/17 08:38 Dose: 125 mls/hr Cefazolin Sodium/Dextrose (Ancef) Confirm Administered Dose 50 mls @ as directed .ROUTE .STK-MED ONE Stop: 10/10/17 08:10 Acetaminophen (Ofirmev) Confirm Administered Dose 100 mls @ as directed IV .STK- MED ONE Stop: 10/10/17 08:11 Lidocaine (Xylocaine-Mpf 2%) Confirm Administered Dose 5 ml .ROUTE .STK-MED ONE Stop: 10/10/17 08:08 Methylene Blue (Provayblue) Confirm Administered Dose 50 mg .ROUTE .STK-MED ONE Stop: 10/10/17 07:31 Midazolam HCl (Versed 1 Mg/Ml) Confirm Administered Dose 2 mg .ROUTE .STK-MED ONE Stop: 10/10/17 08:09 Neostigmine Methylsulfate (Neostigmine) Confirm Administered Dose 5 mg .ROUTE .STK-MED ONE Stop: 10/10/17 12:17 Octyl Cyanoacrylate (Dermabond Advance) Confirm Administered Dose 1 applic .ROUTE .STK-MED ONE Stop: 10/10/17 07:31 Ondansetron HCl (Zofran) Confirm Administered Dose 4 mg .ROUTE .STK-MED ONE Stop: 10/10/17 08:08 Propofol (Diprivan 20 Ml) Confirm Administered Dose 200 mg .ROUTE .STK-MED ONE Stop: 10/10/17 08:09 Rocuronium [place] (Zemuron) Confirm Administered Dose 100 mg .ROUTE .STK-MED ONE Stop: 10/10/17 08:08 Sodium Chloride (Saline Flush) 10 ml FLUSH ASDIRECTED PRN PRN Reason: Keep Vein Open Sodium Chloride (Saline Flush) 2.5 ml FLUSH ASDIRECTED PRN PRN Reason: Keep Vein Open - Exam Wound/Incisions: Dressing Dry and Intact - Problem List & Annotations (1) Postmenopausal bleeding SNOMED Code(s): 74651609 Code(s): N95.0 - POSTMENOPAUSAL BLEEDING Status: Acute Current Visit: No (2) Complex endometrial hyperplasia with atypia SNOMED Code(s): 071009063 Code(s): N85.02 - ENDOMETRIAL INTRAEPITHELIAL NEOPLASIA [EIN] Status: Acute Current Visit: Yes (3) S/P laparoscopic assisted vaginal hysterectomy (LAVH) SNOMED Code(s): 280590425, 93910498, 861308776 Code(s): Z90.710 - ACQUIRED ABSENCE OF BOTH CERVIX AND UTERUS Status: Acute Current Visit: Yes (4) Status post bilateral salpingo-oophorectomy SNOMED Code(s): 311191492, 407357545 Code(s): Z90.722 - ACQUIRED ABSENCE OF OVARIES, BILATERAL Status: Acute Current Visit: Yes - Problem List Review Problem List Initiated/Reviewed/Updated: Yes - My Orders Last 24 Hours: My Active Orders 10/10/17 12:36 Patient Status [ADT] Routine Blood Glucose Check, Bedside [RC] TIDMEALS May Shower [RC] ASDIRECTED Notify Provider Intake and Out [RC] ASDIRECTED Notify Provider Vital Signs [RC] ASDIRECTED Oxygen Therapy [RC] ASDIRECTED RT Incentive Spirometry [RC] Q2HWA Up With Assistance [RC] PER UNIT ROUTINE Up ad Laure [RC] PER UNIT ROUTINE Urinary Catheter Removal [RC] Per Unit Routine Vital Signs [RC] PER UNIT ROUTINE Acetaminophen/oxyCODONE [Percocet 325-5 MG] 1 tab PO Q4H PRN Acetaminophen/oxyCODONE [Percocet 325-5 MG] 2 tab PO Q4H PRN Morphine 4 mg IVPUSH Q2H PRN Ondansetron [Zofran] 4 mg IVPUSH Q6H PRN Promethazine [Phenergan] 25 mg IM Q6H PRN Peripheral IV Discontinue [OM.PC] Routine Sequential Compression Device [OM.PC] Per Unit Routine Resuscitation Status Routine 10/10/17 12:44 Glucose Management IV Reflex [OM.PC] Routine 10/10/17 12:45 Communication Order [RC] ASDIRECTED Diabetes Education [RC] Click to Edit Notify Provider [RC] PRN Ketorolac [Toradol] 15 mg IVPUSH Q6H 10/10/17 13:00 Lactated Ringers [Ringers, Lactated] 1,000 ml IV ASDIRECTED 10/10/17 Dinner Regular Diet [DIET] - Assessment Assessment:: Patient seen and evaluated independently. She is doing well. Has no concerns this am. Labs are normal. Normal urine output overnight - Plan Plan:: She is clinically stable for discharge today once she voids Discharge instructions reviewed. Bleeding and infection precautions given. Nothing in the vagina for 6 weeks Pain meds sent to Pharmacy( Percocet and Ibuprofen) Follow up in 2 weeks
== END 2017-10-11 11:05 | disposition home or self-care (01) ==
LOC: MW.SDS 07:54 → MW.MS 13:23 → MW.SDS 10-11 11:05
PROVIDERS: ATTEND Obstetrics & Gynecology
DX: N85.02 Endometrial intraepithelial neoplasia [EIN] (principal); N95.0 Postmenopausal bleeding; I10 Essential (primary) hypertension; E11.9 Type 2 diabetes mellitus without complications; E66.9 Obesity, unspecified; Z68.29 Body mass index [BMI] 29.0-29.9, adult; E78.00 Pure hypercholesterolemia, unspecified; E03.9 Hypothyroidism, unspecified; I48.91 Unspecified atrial fibrillation; Z79.82 Long term (current) use of aspirin; Z79.84 Long term (current) use of oral hypoglycemic drugs; Z79.899 Other long term (current) drug therapy
CPT/HCPCS: 36415; 58552; 80048; 82962; 85025; 85027; 85610; 86850; 86900; 86901; 88307; A9270; J0131; J0690; J1170; J1885; J1940; J2250; J2405; J2704; J3010; J3490; J7120; 00944